=== PATIENT | female | born 1940 ===

== ENCOUNTER 2017-09-16 04:24 | Emergency (ER) | payer MEDICARE, OTHER ==
--- NOTE | 2017-09-16 04:37 | C.PDOC ---
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 and called 911. Was told to take another 4 baby asa, which she did. Pt was released by acls. Pt is cp free. No n/v/f/c/. Speaking in complete sentences Time Seen by Provider: 09/16/17 04:36 History Per: Patient History/Exam Limitations: no limitations Onset/Duration Of Symptoms: Hrs Current Symptoms Are (Timing): Gone Context: Other Severity: Mild Pain Scale Rating Of: 3 Quality: Tightness Associated Symptoms: denies: Nausea Modifying Factors: None Alleviating Factors: None Recent travel outside of the [place]: No Additional History Per: Family Past Medical History Reviewed: Historical Data, Nursing Documentation, Vital Signs Vital Signs: Last Vital Signs Temp 97.4 F L 09/16/17 04:42 Pulse 78 09/16/17 04:50 Resp 18 09/16/17 04:42 BP 128/61 09/16/17 04:50 Pulse Ox 98 09/16/17 04:42 Family History: States: No Known Family Hx Review Of Systems Constitutional: Negative for: Fever, Sweats Eyes: Negative for: Redness ENT: Negative for: Throat Pain Cardiovascular: Positive for: Chest Pain, Palpitations Respiratory: Negative for: Shortness of Breath Gastrointestinal: Negative for: Nausea, Vomiting, Abdominal Pain Genitourinary: Negative for: Dysuria Musculoskeletal: Negative for: Back Pain Skin: Negative for: Rash Neurological: Negative for: Weakness Psych: Negative for: Anxiety Physical Exam - Physical Exam Appears: Non-toxic, No Acute Distress Skin: Warm, Dry Head: Normacephalic Eye(s): bilateral: Normal Inspection Oral Mucosa: Moist Neck: Supple Chest: Symmetrical Cardiovascular: Rhythm Regular Respiratory: No Rales, No Rhonchi, No Wheezing Gastrointestinal/Abdominal: Soft, No Tenderness, No Distention Back: Normal Inspection Extremity: Normal ROM Extremity: Bilateral: Atraumatic Pulses: Left Dorsalis Pedis: Normal, Right Dorsalis Pedis: Normal Neurological/Psych: Oriented x3, Normal Speech, Normal Cognition Gait: Steady ED Course And Treatment - Laboratory Results Result Diagrams: 09/16/17 05:07 09/16/17 05:07 ECG: Interpreted By Me, Viewed By Me ECG Rhythm: Sinus Rhythm (65), Nonspecific Changes (unchanged from 12/11/2007) Pulse Ox Interpretation: Normal - Radiology CXR: Interpreted by Me, Viewed By Me Against Medical Advice - AMA Patient Left Against Medical Advice: The patient declines admission to the hospital and wishes to leave the Emergency Department. This action is against my medical advice. This decision was made with informed refusal. The patient was told that admission to the hospital is necessary. Explanation of the reasons why were discussed. The risks of leaving were explained to the patient and include, but are not limited to, worsening of known or currently unknown conditions, permanent disability and from undiagnosed or untreated conditions. The patient has the capacity to make this informed decision and understands my explanation of the current medical problem and risks of leaving. The patient voluntarily accepts these risks and signed an AMA form documenting our conversation. The patient was given the opportunity to ask questions and reconsider. The patient was encouraged to return to the Emergency Department at any time for further care. Disposition Counseled Patient/Family Regarding: Studies Performed, Diagnosis, Need For Followup - Disposition Referrals: [facility] [Outside] [facility] [Outside] Disposition: AGAINST MEDICAL ADVICE Disposition Time: 05:47 Condition: FAIR Additional Instructions: Please return if symptoms recur Instructions: Chest Pain (DC), Palpitations (ED) - Clinical Impression Clinical Impression: Palpitations, Chest pain
[2017-09-16 04:48] VITALS: TEMP 97.4
[2017-09-16 05:14] LABS: BASO # 0.1 K/uL (0.0-0.2); BASO % 1.1 % (0.0-2.0); EOS # 0.1 K/uL (0.0-0.7); EOS % 1.3 % (0.0-4.0); HEMOGLOBIN 13.5 g/dL (11.0-16.0); LYMPH # 2.6 K/uL (1.0-4.3); LYMPH % 25.4 % (20.0-40.0); MEAN CELL VOLUME 85.7 fL (81.0-99.0); MEAN CORPUSCULAR HEMOGLOBIN 28.8 pg (27.0-31.0); MEAN CORPUSCULAR HGB CONC 33.6 g/dL (33.0-37.0); MEAN PLATELET VOLUME 7.7 fL (7.2-11.7); MONO # 0.7 K/uL (0.0-0.8); MONO % 6.9 % (0.0-10.0); NEUT # 6.7 K/uL (1.8-7.0); NEUT % 65.3 % (50.0-75.0); NRBC % 0.1 % (0.0-2.0); RBC 4.67 Mil/uL (3.80-5.20); RED CELL DISTRIBUTION WIDTH 14.6 % (11.5-14.5); WHITE BLOOD COUNT 10.2 K/uL (4.8-10.8)
[2017-09-16 05:18] LABS: PROTHROMBIN TIME 11.3 SECONDS (9.7-12.2)
[2017-09-16 05:29] LABS: GFR AFRICAN-AMERICAN > 60; GFR NON-AFRICAN AMERICAN > 60
[2017-09-16 05:41] LABS: ALBUMIN 4.1 g/dL (3.5-5.0); ALT/SGPT 8 U/L (9-52); AST/SGOT 67 U/L (14-36); BLOOD UREA NITROGEN 18 mg/dL (7-17)
[2017-09-16 06:01] VITALS: BP 139/63; PULSE 60; RESP 20; O2SAT 99
--- NOTE | 2017-09-18 14:45 | CARD ---
APPROVED REPORT EKG Measurement Heart [id number] <Conclusion> Normal sinus rhythm Normal ECG
== END 2017-09-16 06:00 | disposition left against medical advice (07) ==
LOC: C.ER 04:24
DX: R00.2 Palpitations (principal); R07.9 Chest pain, unspecified